=== PATIENT | female | born 1995 ===

== ENCOUNTER 2017-01-20 21:09 | Emergency (ER) | payer MEDICAID ==
[2017-01-20 21:19] VITALS: BMI 48.5
[2017-01-20] MEDS ORDERED: Dextrose 5%/Lactated Ringer's 1,000 ML IV SCH (21:30)
[2017-01-20 21:49] LABS: BASO # 0.1 K/uL (0.0-0.2); BASO % 1.2 % (0.0-2.0); EOS % 0.4 % (0.0-4.0); HEMATOCRIT 34.9 % (34.0-47.0); LYMPH # 2.3 K/uL (1.0-4.3); LYMPH % 29.3 % (20.0-40.0); MEAN CELL VOLUME 88.5 fL (81.0-99.0); MEAN CORPUSCULAR HEMOGLOBIN 29.9 pg (27.0-31.0); MEAN CORPUSCULAR HGB CONC 33.7 g/dL (33.0-37.0); MEAN PLATELET VOLUME 9.8 fL (7.2-11.7); MONO # 0.6 K/uL (0.0-0.8); MONO % 7.2 % (0.0-10.0); WHITE BLOOD COUNT 7.9 K/uL (4.8-10.8)
[2017-01-20 22:09] LABS: RBC URINE 5 /hpf (0-3); URINE BACTERIA RARE (<OCC); URINE BILIRUBIN NEGATIVE (NEGATIVE); URINE BLOOD NEGATIVE (NEGATIVE); URINE COLOR Yellow (YELLOW); URINE GLUCOSE (UA) NORMAL (Normal); URINE KETONE NEGATIVE (NEGATIVE); URINE LEUKOCYTE ESTERASE 2+ Leu/uL (Negative); URINE PROTEIN NEGATIVE (NEGATIVE); URINE UROBILINOGEN NORMAL mg/dL (0.2-1.0); WBC URINE 52 /hpf (0-5)
[2017-01-20 22:20] LABS: CHLORIDE 105 mmol/L (98-107); POTASSIUM 3.6 mmol/L (3.6-5.2); SODIUM 135 mmol/L (132-148)
[2017-01-20 22:22] LABS: ALB/GLOB RATIO 0.9 (1.0-2.1); AST/SGOT 19 U/L (14-36); BILIRUBIN,TOTAL 0.7 mg/dL (0.2-1.3); CARBON DIOXIDE 19 mmol/L (22-30); GFR AFRICAN-AMERICAN > 60; TOTAL PROTEIN 6.7 g/dL (6.3-8.3)
[2017-01-20 22:23] LABS: ALKALINE PHOSPHATASE 96 U/L (38-126); BLOOD UREA NITROGEN 7 mg/dL (7-17); GLUCOSE,RANDOM 119 mg/dL (65-105)
[2017-01-20 22:25] LABS: ALT/SGPT < 6 U/L (9-52)
== END 2017-01-20 22:45 | disposition home or self-care (01) ==
LOC: C.EROB 21:09
DX: O36.8130 Decreased fetal movements, third trimester, not applicable or unspecified (principal); O21.0 Mild hyperemesis gravidarum; Z3A.37 37 weeks gestation of pregnancy
CPT/HCPCS: 80053; 80324; 80345; 80346; 80349; 80353; 80358; 80361; 81001; 83690; 83992; 85025; 99283; J2405; J7120